=== PATIENT | male | born 1965 | race Caucasian/White ===

== ENCOUNTER → 2017-08-03 | Outpatient (CLI) | payer MEDICAID | END | disposition home or self-care (01) | LOC: U/S 08:10 | DX: B18.1 Chronic viral hepatitis B without delta-agent (principal) | CPT/HCPCS: 76700 ==

== ENCOUNTER → 2018-07-13 | Outpatient (CLI) | payer MEDICAID | END | disposition home or self-care (01) | LOC: U/S 09:18 | DX: B18.1 Chronic viral hepatitis B without delta-agent (principal) | CPT/HCPCS: 76700 ==

== ENCOUNTER → 2019-01-30 | Outpatient (CLI) | payer MEDICAID | END | disposition home or self-care (01) | LOC: U/S 08:04 | DX: B18.1 Chronic viral hepatitis B without delta-agent (principal) | CPT/HCPCS: 76700 ==